=== PATIENT | female | born 1960 | race Caucasian/White ===

== ENCOUNTER 2018-09-07 11:12 | Emergency (ER) | payer OTHER ==
[~2018-09-07] VITALS: Ht 144.8 cm; Wt 95.2 kg
[~2018-09-07 11:12] MED LIST: DONE5 PO; LISHYD1012 PO; [UNRECOGNIZED DRUG - OTHER]
[2018-10-12] MEDS ORDERED: Ketoconazole120 ML TOP (15:12)
[2018-10-12] MEDS ORDERED: Fluocinonide60 ML TOP (15:13)
[2018-10-12] MEDS ORDERED: TRIA15CR3 TOP (15:15)
== END 2018-09-07 13:09 | disposition home or self-care (01) ==
LOC: ER 11:12
DX: M25.571 Pain in right ankle and joints of right foot (principal); Z88.0 Allergy status to penicillin; Z88.2 Allergy status to sulfonamides; Z88.8 Allergy status to other drugs, medicaments and biological substances; Z79.899 Other long term (current) drug therapy; K21.9 Gastro-esophageal reflux disease without esophagitis; Z87.891 Personal history of nicotine dependence
CPT/HCPCS: 73610; 99283-25

== ENCOUNTER 2018-10-16 08:38 | Inpatient (IN) | payer OTHER ==
[~2018-10-16] VITALS: Ht 170.2 cm; Wt 98.9 kg
[~2018-10-16 08:38] MED LIST changes: +Fluocinonide60 ML TOP; +Ketoconazole120 ML TOP; +TRIA15CR3 TOP
--- NOTE | 2018-10-16 10:02 | NUR ---
History, Chart, Medications and Allergies reviewed before start of procedure. Lungs clear T/O to Auscultation. Patient confirms NPO status and agrees with scheduled surgery. Patient reports completing Chlorhexadine shower X2 prior to admission to hospital.
--- NOTE | 2018-10-16 10:22 | NUR ---
NOZIN, TYLENOL AND PERIDEX GIVEN PER MD ORDERS.
--- NOTE | 2018-10-16 11:20 | NUR ---
PT AMB TO BATHROOM AND BACK TO BED WITHOUT DIFFICULTY. PT SON AT BEDSIDE. PT DENIES NEED FOR ANYTHING AT THIS TIME.
[2018-10-16] MEDS ORDERED: LISI20 PO (17:00)
--- NOTE | 2018-10-16 19:49 | NUR ---
SHIFT SUMMARY PT HAS BEEN PAINFUL POST OP; PT REPORTS PAIN HAS IMPROVED AFTER HAVING IV DILAUDID. PT ALSO HAS C/O NAUSEA, SHE WAS GIVEN ZOFRAN. PT EDUCATED TO TAKE ONLY SIPS OF CLEAR LIQUIDS TOLERATED. PT WAS ABLE TO VOID. BP REMAINS ELEVATED, HOSPITALIST AWARE. REPORT GIVEN TO ZACHARY VELIZ.
[2018-10-17 06:13] LABS: Anion Gap 10 mmol/L (6-16); Blood Urea Nitrogen 11 mg/dL (8-24); Bun/Creatinine Ratio 19.6 (12.0-20.0); CO2, Blood 24 mmol/L (21-32); Calcium, Blood 8.2 mg/dL (8.5-10.1); Chloride, Blood 105 mmol/L (98-108); Creatinine, Blood 0.56 mg/dL (0.40-1.00); Glomerular Filtration Rate >60 (60-); Glucose, Blood 129 mg/dL (70-99); Potassium, Blood 4.3 mmol/L (3.5-5.5); Sodium, Blood 139 mmol/L (136-145)
[2018-10-17 06:38] LABS: BASOPHILS ABSOLUTE AUTO 0.01 K/mm3 (0.00-0.23); BASOPHILS PERCENT AUTO 0 % (0-2); EOSINOPHILS PERCENT AUTO 0 % (0-6); Hematocrit 40.6 % (33.0-51.0); Hemoglobin 13.3 g/dL (11.5-16.0); IMMATURE GRAN ABSOLUTE AUTO 0.03 K/mm3 (0.00-0.10); IMMATURE GRAN PERCENT AUTO 0 % (0-1); LYMPHOCYTES ABSOLUTE AUTO 1.53 K/mm3 (0.84-5.20); LYMPHOCYTES PERCENT AUTO 12 % (21-46); MONOCYTES ABSOLUTE AUTO 0.88 K/mm3 (0.16-1.47); MONOCYTES PERCENT AUTO 7 % (4-13); Mean Corpuscular HGB Conc 32.8 g/dL (31.5-36.5); Mean Corpuscular Volume 95 fL (80-100); Mean Platelet Volume 10.3 fL (9.1-12.4); NEUTROPHILS ABSOLUTE AUTO 10.38 K/mm3 (1.96-9.15); NEUTROPHILS PERCENT AUTO 81 % (41-73); Platelet Count 268 K/mm3 (150-400); RDW Coefficient Variation 13.9 % (11.7-14.2); RDW Standard Deviation 48.5 fL (35.1-46.3); Red Blood Cell Count 4.29 M/mm3 (3.80-5.20); White Blood Cell Count 12.83 K/mm3 (4.00-11.30)
--- NOTE | 2018-10-17 07:59 | NUR ---
SHIFT SUMMARY PT A&O X4 T/O SHIFT. POD#1 R ANKLE ARTHRODESIS; LUPIS AND SPLINT CDI; CAP REFILL LESS MELVA 3 SECONDS, TOES TO R FOOT PINK, WARM AND DRY. PT ABLE TO WIGGLE TOES ON R FOOT. RLE ELEVATED T/O SHIFT; ICE TO R ANKLE PT TOLERATES . PAIN AND NAUSEA MANGED PER EMAR. PT USED BEDPAN AND REPOSITIONED IN BED WITH ASSIST. PT VOICED CONCERN REGARDING SELF-CARE ABILITIES IF DC'D TO HOME. DISCUSSED WITH AM RN AND CHARGE. KHT HOSE TO LLE. PT DENIES SOB AND CP T/O SHFIT. PT SON IN ROOM T/O SHIFT. CALL LIGHT IN REACH; PT DEMONSTRATES USE. REPORT GIVEN TO DAY SHIFT RN.
--- NOTE | 2018-10-17 14:29 | NUR ---
THERAPY HERE TO WORK WITH PT, PT MED FOR PAIN.
--- NOTE | 2018-10-17 19:16 | NUR ---
SHIFT SUMMARY PT A&OX4, VSS, POD1 R ANKLE ARTHRODESIS, SPLINT/ACEWRAP, WIGGLES TOES, LEGS ELEVATED, ICE BEHIND R KNEE, NWB. TRANSFERS STAND/PIVOT TO BSC/BED/CHAIR. PAIN MANAGED WITH 5 MG OXY. MARY PO, DENIES N&V. UP TO CHAIR T/O SHIFT. VOIDING WELL. REPORT GIVEN TO ZACHARY VELIZ.
--- NOTE | 2018-10-18 07:48 | NUR ---
SHIFT SUMMARY PT A&O X4 T/O SHIFT. POD#2 R ANKLE ARTHRODESIS; DRESSING CDI. TOES TO R FOOT PINK; BRISK CAP REFILL. PAIN MANAGED PER EMAR. RA; PT DENIED NAUSEA, CP AND SOB. KHT TO LLE. PT UP WITH GB, FWW AND SENGA, NWB RLE; FOLLOWS PRECAUTIONS WELL. UP IN CHAIR THIS AM AND TO BSC DURING NIGHT. PT BEDMOBILE. CALL LIGHT IN REACH; PT DEMONSTRATES USE. REPORT GIVEN TO DAY SHIFT RN.
--- NOTE | 2018-10-18 19:40 | NUR ---
SHIFT SUMMARY PT A&OX4, VSS, POD2 R ANKLE ARTHRODESIS, SPLINT/ACEWRAP, ELEVATED, ICED. STAND PIVOT TRANSFERS WELL TO BSC/CHAIR/BED. PAIN MANAGED PER EMAR. MARY PO, DENIES N&V. VOIDING WELL. PLAN FOR TRANSFER TO SNF. WCTM UNTIL REPORT GIVEN TO ONCAGUSTIN DONG RN.
[2018-10-19 04:51] LABS: Hemoglobin 12.4 g/dL (11.5-16.0); Mean Corpuscular HGB 30.8 pg (26.0-34.0); Mean Corpuscular HGB Conc 32.6 g/dL (31.5-36.5); Mean Corpuscular Volume 95 fL (80-100); Mean Platelet Volume 10.1 fL (9.1-12.4); Platelet Count 212 K/mm3 (150-400); RDW Coefficient Variation 14.1 % (11.7-14.2); RDW Standard Deviation 48.9 fL (35.1-46.3); Red Blood Cell Count 4.02 M/mm3 (3.80-5.20)
--- NOTE | 2018-10-19 07:31 | NUR ---
SHIFT SUMMARY PT A&O X4 T/O SHIFT. POD#3 R ANKLE ARTHRODESIS; LUPIS WRAP CDI T/O SHIFT. R TOES PINK, WARM DRY, BRISK CAP REFILL. PAIN IN R ANKLE/FOOT MANGED PER EMAR. NAUSEA MANGED PER EMAR; ONE EPISODE. PT UP TO BSC WITH FWW, GB AND SBA; NWB RLE; PT TOLERATES WELL. PT BED MOBILE. RA; DENIES SOB AND CP. REPORT GIVEN TO DAY SHIFT RN.
--- NOTE | 2018-10-19 18:23 | NUR ---
REPORT REPORT CALLED TO ALEXUS AT [facility] AT 1814. AWAITING TRANSPORT FOR PT TO [facility].
--- NOTE | 2018-10-19 18:56 | NUR ---
DISCHARGE PT DISCHARGED AT APPROXIMATELY 1835 WITH [facility] TO [facility].
== END 2018-10-19 18:35 | DRG 493 ==
LOC: ORSCMMR 08:38 → ORD 10:45 → ORSCMMR 10:45 → SURS 15:02 → ORSCMMR 15:02 → SURS 16:10
PROVIDERS: Podiatrist Foot & Ankle Surgery; ADMIT Internal Medicine
PROC: 0SGF04Z Fusion of Right Ankle Joint with Internal Fixation Device, Open Approach (ICD-10-PCS; principal; 2018-10-16 10:45)
DX: M19.071 Primary osteoarthritis, right ankle and foot (principal); F15.93 Other stimulant use, unspecified with withdrawal; M21.171 Varus deformity, not elsewhere classified, right ankle; E66.01 Morbid (severe) obesity due to excess calories; I10 Essential (primary) hypertension; F03.90 Unspecified dementia, unspecified severity, without behavioral disturbance, psychotic disturbance, mood disturbance, and anxiety; J45.909 Unspecified asthma, uncomplicated; E78.00 Pure hypercholesterolemia, unspecified; R51 Headache; Z87.891 Personal history of nicotine dependence; R11.0 Nausea; Z68.34 Body mass index [BMI] 34.0-34.9, adult
CPT/HCPCS: 36415; 73610; 80048; 85025; 85027; 97110; 97116; 97162; 97166; 97530; C1713; J0171; J0690; J0735; J1100; J1170; J1650; J1885; J2250; J2405; J2550; J2795; J3010; J7030; J7120

== ENCOUNTER → 2022-02-12 | Outpatient (CLI) | payer OTHER ==
[~2022-02-12] MED LIST changes: +LISI20 PO
== END | disposition home or self-care (01) ==
LOC: LAB 13:26 → LAB SHORT 13:26
DX: E11.9 Type 2 diabetes mellitus without complications (principal); R30.9 Painful micturition, unspecified
CPT/HCPCS: 82043; 87086

== ENCOUNTER 2023-09-09 09:29 | Emergency (ER) | payer OTHER ==
[~2023-09-09] VITALS: Ht 144.8 cm; Wt 103.4 kg
[2023-09-09] MEDS ORDERED: SPIRONOLACTONE25 MG PO (09:56)
[2023-09-09] MEDS ORDERED: NITROGLYCERIN0.4 M3 SL (09:56)
[2023-09-09] MEDS ORDERED: LOSA50 PO (09:57)
[2023-09-09] MEDS ORDERED: METFORMIN HCL500 M3 PO (09:57)
[2023-09-09 10:21] LABS: BASOPHILS ABSOLUTE AUTO 0.05 K/mm3 (0.00-0.23); BASOPHILS PERCENT AUTO 1 % (0-2); EOSINOPHILS ABSOLUTE AUTO 0.08 K/mm3 (0.00-0.68); EOSINOPHILS PERCENT AUTO 1 % (0-6); Hematocrit 41.6 % (33.0-51.0); IMMATURE GRAN ABSOLUTE AUTO 0.01 K/mm3 (0.00-0.10); IMMATURE GRAN PERCENT AUTO 0 % (0-1); LYMPHOCYTES ABSOLUTE AUTO 2.33 K/mm3 (0.84-5.20); LYMPHOCYTES PERCENT AUTO 37 % (21-46); MONOCYTES ABSOLUTE AUTO 0.62 K/mm3 (0.16-1.47); MONOCYTES PERCENT AUTO 10 % (4-13); Mean Corpuscular HGB 30.8 pg (26.0-34.0); Mean Corpuscular HGB Conc 33.7 g/dL (31.5-36.5); Mean Corpuscular Volume 92 fL (80-100); Mean Platelet Volume 10.3 fL (9.1-12.4); NEUTROPHILS ABSOLUTE AUTO 3.14 K/mm3 (1.96-9.15); NEUTROPHILS PERCENT AUTO 50 % (41-73); Platelet Count 257 K/mm3 (150-400); RDW Coefficient Variation 13.3 % (11.7-14.2); RDW Standard Deviation 45.4 fL (35.1-46.3); Red Blood Cell Count 4.54 M/mm3 (3.80-5.20); White Blood Cell Count 6.23 K/mm3 (4.00-11.30)
[2023-09-09 10:49] LABS: Albumin, Blood 3.7 g/dL (3.4-5.0); Bilirubin, Total 0.2 mg/dL (0.1-1.0); Bun/Creatinine Ratio 25.9 (12.0-20.0); Calcium, Blood 9.1 mg/dL (8.5-10.1); Creatinine, Blood 0.42 mg/dL (0.40-1.00); Globulin, Blood 3.7 g/dL (2.2-4.0); Potassium, Blood 4.1 mmol/L (3.5-5.5); Total Protein, Blood 7.4 g/dL (6.4-8.2)
[2023-09-09 13:44] VITALS: BP 188/92
== END 2023-09-09 13:45 | disposition home or self-care (01) ==
LOC: ER 09:29
PROVIDERS: Emergency Medicine
DX: R07.89 Other chest pain (principal); I10 Essential (primary) hypertension; E11.9 Type 2 diabetes mellitus without complications; E78.5 Hyperlipidemia, unspecified; M19.90 Unspecified osteoarthritis, unspecified site; K21.9 Gastro-esophageal reflux disease without esophagitis; F03.90 Unspecified dementia, unspecified severity, without behavioral disturbance, psychotic disturbance, mood disturbance, and anxiety; Z87.891 Personal history of nicotine dependence; Z79.899 Other long term (current) drug therapy; Z88.0 Allergy status to penicillin; Z88.1 Allergy status to other antibiotic agents; Z88.2 Allergy status to sulfonamides; Z88.6 Allergy status to analgesic agent; Z88.8 Allergy status to other drugs, medicaments and biological substances
CPT/HCPCS: 71045; 80053; 84484; 85025; 93005; 93010; 99285-25

== ENCOUNTER → 2025-06-23 | Outpatient (CLI) | payer OTHER ==
[~2025-06-23] MED LIST changes: +ALBU90OI; +DOXY100 PO; +LOSA50 PO; +METFORMIN HCL500 M3 PO; +NITROGLYCERIN0.4 M3 SL; +SPIRONOLACTONE25 MG PO
[2025-06-23 19:46] LABS: Creatinine, Urine Random 33.4 mg/dL (27.00-270.00); Microalb/Creat Ratio UR, Rand 17.216 mg/g (0.000-30.000); Microalbumin, Random Urine 5.75 mg/L (0.000-20.000)
== END ==
LOC: LAB 14:32 → LAB SHORT 14:32
PROVIDERS: Student in an Organized Health Care Education/Training Program
DX: E11.69 Type 2 diabetes mellitus with other specified complication (principal); E66.9 Obesity, unspecified
CPT/HCPCS: 82043; 82570

== ENCOUNTER → 2025-08-11 | Outpatient (CLI) | payer OTHER ==
[2025-08-11 15:47] LABS: CHOL/HDL RATIO 3.2; Cholesterol 202 mg/dL (50-200); HDL Cholesterol 63 mg/dL (>39); LDL/HDL RATIO 1.8; Low Density Lipoprotein Chol 111 mg/dL (0-110); Triglycerides 140 mg/dL (30-160); Uric Acid, Blood 2.6 mg/dL (2.6-6.0); Very Low Density Lipoprot Chol 28 mg/dL (6-32)
== END ==
LOC: LAB SHORT 12:59 → LAB 12:59
PROVIDERS: Student in an Organized Health Care Education/Training Program
DX: E78.5 Hyperlipidemia, unspecified (principal); I10 Essential (primary) hypertension
CPT/HCPCS: 80061; 84550